=== PATIENT | female | born 1955 | race Caucasian/White ===

== ENCOUNTER 2022-10-29 15:30 | Emergency (ER) | payer MEDICARE, SELFPAY ==
[2022-10-29] VITALS (12 sets, daily range): BP systolic 141–183; BP diastolic 88–104; PULSE 85–106; RESP 16–44; TEMP 36.6; O2SAT 88–100; BMI 17.2
--- NOTE | 2022-10-29 17:54 | DI.RAD.S_ITS ---
PROCEDURE: XR CHEST 1V INDICATIONS: chest pain TECHNIQUE: One view of the chest was acquired. COMPARISON: None. FINDINGS: Surgical changes and devices: None. Lungs and pleura: Lungs are clear. No pleural effusions or pneumothorax. Mediastinum: Mediastinal contours appear normal. Heart size is normal. Bones and chest wall: No suspicious bony lesions. Overlying soft tissues appear unremarkable. IMPRESSION: No acute cardiopulmonary abnormality. Dictated by: Rosendo Ashford M.D. on 10/29/2022 at 20:49 Approved by: Rosendo Ashford M.D. on 10/29/2022 at 20:49
--- NOTE | 2022-10-29 18:04 | PC.NURSE ---
174: Pt reports increased SOB, nauseated and heeving into emesis bag. states her throat feels like its closing or i have a ball in there and c/o CP. pt taken to [facility] and IV placed and EKG obtained. Labs drawn and Dr Delatorre at bedside for assessment. BP 160/103. Pt taken to rm 5.
[2022-10-29 18:14] LABS: INR 0.9 (0.9-1.3); Prothrombin Time 10.2 SECONDS (10.1-12.7)
[2022-10-29 18:16] LABS: PTT Partial Thromboplastin Tim 30 SECONDS (26-36)
[2022-10-29 18:23] LABS: Alanine Aminotransferase 35 IU/L (<35); Albumin 5.4 g/dL (3.5-5.0); Albumin Globulin Ratio 1.5 (1.0-2.8); Alkaline Phosphatase 83 U/L (38-126); Aspartate Aminotransferase 62 IU/L (14-36); Bilirubin Total 1.2 mg/dL (0.2-1.3); Blood Urea Nitrogen 14 mg/dL (7-17); Calcium 10.3 mg/dL (8.4-10.2); Carbon Dioxide 22 mmol/L (22-32); Chloride 100 mmol/L (98-107); Creatine Kinase 88 U/L (30-135); Estimated Glomerular Filt Rate > 60 mL/min (>60); Globulin 3.5 g/dL (1.7-4.1); Glucose 91 mg/dL (80-110); Lipase 96 U/L (23-300); Magnesium 1.9 mg/dL (1.6-2.3); Potassium 4.7 mmol/L (3.4-5.1); Sodium 136 mmol/L (137-145); Total Protein 8.9 g/dL (6.3-8.2)
[2022-10-29 18:24] LABS: Add Manual Diff / Slide Review NO; Basophils Absolute Auto 0 /uL (0-100); Basophils Percent Auto 0.3 % (0-2); Eosinophils Absolute Auto 100 /uL (0-450); Eosinophils Percent Auto 1.4 % (2-4); Hematocrit 43.5 % (36-46); Hemoglobin 15.3 g/dL (12.0-16.0); Lymphocytes Absolute Auto 1900 /uL (1100-4500); Lymphocytes Percent Auto 33.8 % (25-40); Mean Corpuscular Volume 102.7 fL (80-100); Monocytes Absolute Auto 600 /uL (0-900); Monocytes Percent Auto 9.7 % (3-14); Neutrophils Absolute Auto 3100 /uL (1500-7000); Neutrophils Percent Auto 54.8 % (50-75); Platelet Count 319 X10^3/uL (150-400); Red Blood Cell Count 4.24 X10^6/uL (4.0-5.2); Red Cell Distribution Width 13.5 % (11.6-14.8); White Blood Cell Count 5.7 X10^3/uL (4.5-11.0)
[2022-10-29 18:25] LABS: HEMOLYSIS 56 (0-50)
[2022-10-29 18:35] LABS: Troponin I < 0.012 ng/mL (0.01-0.034)
--- NOTE | 2022-10-29 18:57 | ED.SKABFB ---
HPI - Skin/Abscess/Foreign Bdy General Chief complaint: Skin/Abscess/Foreign Body Stated complaint: Something in throat since 12pm, GERD, breathing Time Seen by Provider: 10/29/22 18:14 Source: patient Mode of arrival: Ambulatory Limitations: no limitations History of Present Illness HPI narrative: 67F nonsmoker with history of adenomatous polyp of the colon, allergic rhinitis, anxiety, GERD and prior esophageal stricture presents with her in the chief complaint of a fullness and pain in her throat. She states that she denies any specific event and was not eating when she noticed this discomfort and does not suspect any foreign body but states that she is having trouble swallowing and breathing and feels like there is a mass in her throat. She is been unable to eat or drink anything over the course of the day and has had subjective fever and chills. She denies chest pain or shortness of breath. She is not dizzy nor weak or lightheaded. Related Data Home Medications Medication Instructions Recorded Confirmed ascorbic acid (vitamin C) 500 mg mg PO 02/09/19 03/20/21 capsule cholecalciferol (vitamin D3) 25 1,000 unit PO DAILY 02/09/19 03/20/21 mcg (1,000 unit) capsule escitalopram oxalate 10 mg tablet 10 mg PO DAILY 02/09/19 03/20/21 magnesium oxide 400 mg PO DAILY 02/09/19 03/20/21 mecobalamin (vitamin B12) 1,000 1,000 mcg sublingual DAILY 02/09/19 03/20/21 mcg disintegrating tablet,sublingual rabeprazole 20 mg tablet,delayed 20 mg PO DAILY 02/09/19 03/20/21 release Previous Rx's Medication Instructions Recorded diazepam 2 mg tablet (Valium) 2 mg PO BID-TID PRN muscle spasm 10/29/22 #10 tabs Allergies Allergy/AdvReac Type Severity Reaction Status Date / Time risedronate sodium AdvReac Intermediate Couldnt Verified 10/29/22 15:34 [From Actonel] tolerate medication, experience extreme muscle pain. Review of Systems Review of Systems Narrative: GENERAL: Denies chills, fatigue, malaise, fever, sweats. HEENT: See HPI RESPIRATORY: Denies dyspnea, cough, wheezing, hemoptysis, sputum. CARDIOVASCULAR: Denies chest pain, palpitations, orthopnea, edema, GASTROINTESTINAL: See HPI : Denies dysuria, frequency, incontinence, hematuria, urinary retention. MUSCULOSKELETAL: denies weakness, joint pain, or bony pain SKIN: Denies rash, skin lesions, or other NEUROLOGIC: Denies weakness, headache, numbness, change in speech, confusion, seizures, incoordination. PSYCHIATRIC: No concerning psychosocial issues. 12 point review of systems is negative except for those stated above Patient History Medical History Actinic keratosis Anxiety (~2012) Chicken pox Chicken pox Endometriosis (~1979) Endometriosis GERD (gastroesophageal reflux disease) (~2007) Heavy menstrual period Hemorrhoid (~2011) History of adenomatous polyp of colon History of fever Infertility (~1979) Infertility Measles Measles Osteopenia Skin cancer (~2012) Surgical History Anesthesia Anesthesia History of colonoscopy (~01/2018) Surgical procedure planned Family History Father Heart disease Mother Diabetes mellitus Heart disease Hyperlipidemia Hypertension Social History Smoking Status: Never smoker Smoking Status: Never smoker alcohol intake frequency: holidays/special occasions only Substance Use Type: does not use Exam Narrative Exam Narrative: GENERAL: [67] year old patient appears stated age. Well-developed patient, in mild distress. HEAD: Atraumatic. Normocephalic. EYES: Pupils equal round and reactive. Extraocular motions intact. No scleral icterus. No injection or drainage. ENT: Nose without bleeding, purulent drainage. Throat without erythema, tonsillar hypertrophy or exudate. Airway patent. NECK: Trachea midline. Non tender CARDIOVASCULAR: Regular rate and rhythm without murmurs, gallops, or rubs. RESPIRATORY: Clear to auscultation. Breath sounds equal bilaterally. No wheezes, rales, or rhonchi. GASTROINTESTINAL: Abdomen soft, non-tender, nondistended. EXTREMITIES: No edema or joint tenderness. BACK: Nontender without deformity or crepitance. No flank tenderness. NEURO: AOx3. SKIN: No rash or erythema of visible areas Initial Vital Signs Initial Vital Signs: Vital Signs Temperature 97.9 F 10/29/22 15:34 Pulse Rate 106 H 10/29/22 15:34 Respiratory Rate 16 10/29/22 15:34 Blood Pressure 145/91 H 10/29/22 15:34 Pulse Oximetry 100 10/29/22 15:34 Oxygen Delivery Method 10/29/22 15:34 Course Orders Ordered: ED Orders 10/29/22 17:51 Complete Blood Count AUTO DIFF Stat Comprehensive Metabolic Panel Stat Lipase Stat Magnesium Stat Partial Thromboplastin Time Stat Prothrombin Time INR Stat Troponin & CK Cardiac Panel Stat 10/29/22 17:54 XR chest 1V Stat EKG-12 Lead Stat 10/29/22 19:04 CT soft tissue neck w con Stat Discontinued Medications Diazepam (Diazepam 2 Mg Tablet) 2 mg PO NOW ONE Stop: 10/29/22 22:16 Last Admin: 10/29/22 22:20 Dose: 2 mg Documented By: LEWIS Reevaluation(s) Reevaluation #1: patient able to drink karol luisito, no vomiting, she states it just feels weird Consultations Consultation #1: discussed with on-call surgery, after discussion of this history and physical exam as well as imaging and patient's ability to keep liquids down she recommends safe discharge as there is no obvious indication for surgical intervention, recommends referral to Dr. Devlin at [facility] given her expertise with esophageal issues. Recommends discharge with short courseOf Valium due to possible esophageal spasming Vital Signs Vital signs: Vital Signs - 8 hr 10/29/22 17:45 10/29/22 18:08 10/29/22 18:10 Pulse Rate 85 98 H 103 H Respiratory Rate 16 24 Blood Pressure 160/103 H Pulse Oximetry 99 88 L 100 Oxygen Delivery Method Room Air 10/29/22 18:10 10/29/22 18:30 10/29/22 18:30 Pulse Rate 97 H Respiratory Rate 18 Blood Pressure 158/89 H 141/88 H Pulse Oximetry 100 Oxygen Delivery Method 10/29/22 19:00 10/29/22 19:01 10/29/22 19:01 Pulse Rate 86 99 H Respiratory Rate Blood Pressure 183/104 H Pulse Oximetry 100 99 Oxygen Delivery Method 10/29/22 19:31 10/29/22 19:44 10/29/22 19:44 Pulse Rate 97 H Respiratory Rate 26 H Blood Pressure 158/91 H Pulse Oximetry 88 L 89 L Oxygen Delivery Method 10/29/22 22:25 10/29/22 20:00 10/29/22 20:00 Pulse Rate 85 96 H Respiratory Rate 16 34 H Blood Pressure 163/94 H 156/98 H Pulse Oximetry 98 98 Oxygen Delivery Method Room Air 10/29/22 20:30 10/29/22 20:30 Pulse Rate 98 H Respiratory Rate 44 H Blood Pressure 171/88 H Pulse Oximetry 100 Oxygen Delivery Method MDM - Skin/Abscess/Foreign Bdy Lab Data Result diagrams: 10/29/22 17:51 10/29/22 17:51 Labs: Lab Results 10/29/22 10/29/22 10/29/22 Range/Units 17:51 17:51 17:51 WBC 5.7 (4.5-11.0) X10^3/uL RBC 4.24 (4.0-5.2) X10^6/uL Hgb 15.3 (12.0-16.0) g/dL Hct 43.5 (36-46) % MCV 102.7 H (80-100) fL MCH 36.0 H (26-34) PG MCHC 35.0 (30-36) % RDW 13.5 (11.6-14.8) % Plt Count 319 (150-400) X10^3/uL Neut % (Auto) 54.8 (50-75) % Lymph % (Auto) 33.8 (25-40) % Kern % (Auto) 9.7 (3-14) % Eos % (Auto) 1.4 L (2-4) % Baso % (Auto) 0.3 (0-2) % Neut # (Auto) 3100 (5879-0044) /uL Lymph # (Auto) 1900 (3550-8124) /uL Kern # (Auto) 600 (0-900) /uL Eos # (Auto) 100 (0-450) /uL Baso # (Auto) 0 (0-100) /uL PT 10.2 (10.1-12.7) SECONDS INR 0.9 (0.9-1.3) APTT 30 (26-36) SECONDS Sodium 136 L (137-145) mmol/L Potassium 4.7 (3.4-5.1) mmol/L Chloride 100 (98-107) mmol/L Carbon Dioxide 22 (22-32) mmol/L BUN 14 (7-17) mg/dL Creatinine 0.56 (0.52-1.04) mg/dL Estimated GFR > 60 (>60) mL/min BUN/Creatinine Ratio 25.0 H (6-22) Glucose 91 (80-110) mg/dL Calcium 10.3 H (8.4-10.2) mg/dL Magnesium 1.9 (1.6-2.3) mg/dL Total Bilirubin 1.2 (0.2-1.3) mg/dL AST 62 H (14-36) IU/L ALT 35 H (<35) IU/L Alkaline Phosphatase 83 (38-126) U/L Total Creatine Kinase 88 (30-135) U/L CK-MB (CK-2) TNP CK-MB (CK-2) Rel Index TNP Troponin I < 0.012 (0.01-0.034) ng/mL Total Protein 8.9 H (6.3-8.2) g/dL Albumin 5.4 H (3.5-5.0) g/dL Globulin 3.5 (1.7-4.1) g/dL Albumin/Globulin Ratio 1.5 (1.0-2.8) Lipase 96 (23-300) U/L MDM Narrative Medical decision making narrative: CC: fullness in her throat for the past few days Complicating co-morbidities: prior esophageal strictures, GERD, anxiety, age Data collected from: patient and Medical records reviewed: including prior PCP visits Differential considered, but not limited to: esophageal foreign body, mass, abscess vs. other Exam documented above, pertinent findings include: no significant abnormal physical exam findings, no visible mass or obstructive process and posterior pharynx, airway patent, patient controlling secretions. Normal lung sounds without evidence of re Lab Test results independently reviewed as above. Pertinent findings: no significant sign of infection such as leukocytosis or left shift, electrolytes and renal function unremarkable, slight bump in LFTs Imaging studies independently reviewed: CT soft tissue of neck with IV contrast demonstrates no abscess, mass or Treatments: patient feels improvement after Valium Re-evaluations: no evidence of respiratory distress, patient managing secretions, no vomiting, patient tolerating orals Discussion: patient with a sensation of fullness in her throat, no vomiting, no respiratory distress, feels abnormal when she swallows but able to keep liquids down. Imaging is reassuring. Discussed with surgery, no need for intervention, recommend prescription for Valium for muscle relaxation, referral to Dr. Devlin at [facility] Disposition: see below, along with detailed discharge instructions that have been reviewed with patient as well as indications for ED re-evaluation and additional outpatient follow up Discharge Plan Departure Patient Disposition: Home Clinical Impression: Esophageal abnormality Instructions: Esophageal Stricture Activity Restrictions/Additional Instructions: *You have been diagnosed with [esophageal abnormality. As we discussed your history and physical exam as well as lab work are very reassuring. The CT scan does not demonstrate any blockage or infection] *What to do: *Please continue to take your regular medications as directed. [x ] New medication prescriptions sent to your pharmacy: [ [facility]] [ ] New medication written as a paper prescription [ ] No new medications given *Please follow up with Dr. Devlin from [facility] call for an appointment. Let them know you were seen in the Emergency Department and that we ask that you be seen in follow up. We will electronically transmit a record of today's note if your PCP is in our system *Return to Emergency Department if you should have any new, worsening or concerning symptoms, such as [fever greater than 101 F, shaking chills, worsening pain, persistent vomiting or other bothersome symptoms] Prescriptions: New diazepam [Valium] 2 mg tablet 2 mg PO BID-TID PRN (Reason: muscle spasm) Qty: 10 0RF No Action rabeprazole 20 mg tablet,delayed release (DR/EC) 20 mg PO DAILY cholecalciferol (vitamin D3) 1,000 unit capsule 1,000 unit PO DAILY escitalopram oxalate 10 mg tablet 10 mg PO DAILY magnesium oxide 400 mg capsule 400 mg PO DAILY mecobalamin (vitamin B12) 1,000 mcg tablet,disintegrating 1,000 mcg SL DAILY ascorbic acid (vitamin C) 500 mg capsule PO Referrals: Akash Escobar MD [Primary Care Provider] - Allie Devlin MD [Non-Staff] - Stand Alone Forms: Patient Portal/API
--- NOTE | 2022-10-29 19:04 | DI.CT.S_ITS ---
PROCEDURE: CT SOFT TISSUE NECK W CON INDICATIONS: throat pain, feels mass, cannot swallow, fever TECHNIQUE: After the administration of intravenous contrast, 3.0 mm axial sections acquired from the sella to the aortic arch. Additional oblique axial 3.0 mm sections acquired through the pharynx. 3 mm thick coronal and sagittal reformats were generated. For radiation dose reduction, the following was used: automated exposure control. COMPARISON: None. FINDINGS: Image quality: Good. Dental hardware beam hardening. Lymph nodes: Prominent right submandibular node measuring 0.8 cm short axis diameter, (2/42). Vessels: Visualized vasculature appears patent. Neck spaces: The oropharynx, nasopharynx, and pharynx demonstrate no mucosal lesions. The vocal cords, false vocal cords, pyriform sinuses, epiglottis, vallecula, and tongue base all appear normal. Extramucosal spaces appear unremarkable. The esophagus is patulous and has fluid in the inferior aspect. Glands: The parotid and submandibular glands appear normal. Thyroid gland is unremarkable. Miscellaneous: Trace mucosal thickening in the right maxillary sinus. Visualized brain and orbits appear normal. Lung apices appear clear. Superficial soft tissues appear normal. Bones: No suspicious bony lesions. [id number] degenerative changes in the cervical spine. Visualized sinuses and mastoids appear unremarkable. IMPRESSION: No fluid collection or abscess demonstrated. Prominent right submandibular lymph node. The esophagus is patulous with air-fluid level at the mid/inferior aspect. This could result in a globus sensation. Consider esophagram endoscopy or CT for further evaluation of the distal esophagus. Dictated by: Rosendo Ashford M.D. on 10/29/2022 at 21:04 Approved by: Rosendo Ashford M.D. on 10/29/2022 at 21:14
[2022-10-29] MEDS: diazePAM 2 MG TABLET PO (22:20)
--- NOTE | 2022-10-29 22:41 | PC.NURSE ---
pt was eating salad around 1100 when she felt like it got stuck in her throat. she states this has happened before but most of the time it goes away fairly quickly. pt states it is not going away this time. pt states she feels like it is hard to breath in through her mouth. she states that she can feel the saliva building up and then she has to spit it out and it did have small pieces of lettuce in it. pt states she has had stricture in past, approx. 10-12 years ago. but her GI doc retired and she does not have a new one.
== END 2022-10-29 22:35 | disposition home or self-care (01) ==
PROVIDERS: Emergency Medicine; Emergency Provider Emergency Medicine; PCP Internal Medicine
DX: K22.9 Disease of esophagus, unspecified (principal); R07.9 Chest pain, unspecified; R07.0 Pain in throat
CPT/HCPCS: 36415; 70491; 71045; 80053; 82550; 83690; 83735; 84484; 85025; 85610; 85730; 93005; 93010; 99283; 99284; Q9967

== ENCOUNTER → 2023-04-30 10:53 | Outpatient (CLI) | payer MEDICARE, SELFPAY ==
[2023-04-30 13:03] LABS: HEMOLYSIS < 15 (0-50); Iron 140 ug/dL (37-170)
[2023-04-30 13:08] LABS: Alanine Aminotransferase 38 IU/L (<35); Albumin 4.5 g/dL (3.5-5.0); Albumin Globulin Ratio 1.8 (1.0-2.8); Alkaline Phosphatase 71 U/L (38-126); Aspartate Aminotransferase 74 IU/L (14-36); BUN Creatinine Ratio 19.4 (6-22); Bilirubin Total 0.8 mg/dL (0.2-1.3); Bilirubin Unconjugated 0.5 mg/dL (0.0-1.1); Blood Urea Nitrogen 14 mg/dL (7-17); Calcium 9.2 mg/dL (8.4-10.2); Carbon Dioxide 27 mmol/L (22-32); Chloride 101 mmol/L (98-107); Cholesterol 256 mg/dL (140-199); Creatine Kinase 52 U/L (30-135); Estimated Glomerular Filt Rate > 60 mL/min (>60); Globulin 2.5 g/dL (1.7-4.1); Glucose 86 mg/dL (80-110); HEMOLYSIS < 15 (0-50); Potassium 3.9 mmol/L (3.4-5.1); Sodium 136 mmol/L (137-145); Triglycerides 103 mg/dL (35-150)
[2023-04-30 13:14] LABS: Percent Iron Saturation 41 % (15-50); Total Iron Binding Capacity 339 ug/dL (265-497); Transferrin 299 mg/dL (206-381)
[2023-04-30 13:15] LABS: HDL Cholesterol 163 mg/dL (40-60); LDL Cholesterol Calculated 72 mg/dL (<100)
[2023-04-30 13:33] LABS: TSH w/ Reflex to FT4 1.28 uIU/mL (0.47-4.68)
[2023-05-01 07:19] LABS: Ceruloplasmin 24.6 mg/dL (19.0-39.0)
[2023-05-01 16:38] LABS: Hep C Virus Ab w/Reflex Quant NEGATIVE s/c (NEGATIVE); Hepatitis B Surface Antigen NEGATIVE s/c (NEGATIVE)
[2023-05-02 04:30] LABS: Hepatitis B Surf Ab Qualitativ Non Reactive (.)
[2023-05-02 10:09] LABS: Smooth Muscle Antibody 4 Units (0-19)
[2023-05-03 15:36] LABS: ANA Screen, IFA Negative (.)
== END ==
PROVIDERS: PCP Internal Medicine; Referring Provider Internal Medicine; Visit Provider Internal Medicine
DX: E03.9 Hypothyroidism, unspecified (principal); K22.2 Esophageal obstruction; K21.9 Gastro-esophageal reflux disease without esophagitis; K73.9 Chronic hepatitis, unspecified
CPT/HCPCS: 36415; 80048; 80061; 80076; 82390; 82550; 83516; 83540; 83550; 84443; 86038; 86706; 86803; 87340

== ENCOUNTER → 2023-05-13 10:50 | Outpatient (CLI) | payer MEDICARE, SELFPAY ==
--- NOTE | 2023-05-13 | DI.MG.S_ITS ---
BILATERAL DIGITAL SCREENING MAMMOGRAM 3D/2D WITH CAD WITH AUGMENTATION: 05/13/2023 CLINICAL: Baseline by default. Family history of breast cancer. No prior exams were available for comparison. Both breasts are heterogeneously dense, which may obscure small masses (category c / 51-75% glandular tissue). Current study was also evaluated with a Computer Aided Detection (CAD) system. Bilateral breast implants are intact. No significant masses, calcifications, or other findings are seen in either breast. IMPRESSION: NEGATIVE There is no mammographic evidence of malignancy. A 1 year screening mammogram is recommended. Based on the Tyrer Cuzick model (a risk assessment model) the patient's lifetime risk is 9.7% and her 10 year risk is 5.8%. According to the ACR, ACS, and NCCN guidelines, an annual breast MRI exam along with mammogram is recommended if the patient's lifetime risk is 20% or greater. This exam was interpreted at Station ID: [id number]. NOTE: For mammograms, a report in lay terms will be sent to the patient. Approximately 15% of breast malignancies will not be visualized mammographically. In the management of a palpable breast mass, a negative mammogram must not discourage biopsy of a clinically suspicious lesion. Electronically Signed By: Rosendo rodríguez/mireya:05/13/2023 16:52:07 letter sent: Normal Exam ACR BI-RADS Category 1: Negative 3341F
--- NOTE | 2023-05-13 11:04 | DI.DEXA.S_ITS ---
Bone Density Report Name: JACQUELIN CHICAS Age: 67 Sex: Female Ethnicity: White Date of : 1955 Indication: postmenopausal; screening for osteoporosis; Referring Provider: BERHANE MARI Study: Bone densitometry was performed. Exam Date: May 13, 2023 Accession number: [id number] Bone Density: Region BMD T-score Z-score Classification AP Spine(L1-L4) 0.781 -2.4 -0.3 Osteopenia Femoral Neck (Left) 0.589 -2.3 -0.6 Osteopenia Total Hip (Left) 0.725 -1.8 -0.3 Osteopenia Femoral Neck (Right) 0.605 -2.2 -0.4 Osteopenia Total Hip (Right) 0.750 -1.6 -0.1 Osteopenia Total Hip Mean 0.737 -1.7 -0.2 Osteopenia World Health Organization criteria for BMD impression classify patients as: Normal (T-score at or above -1.0), Osteopenia (T-score between -1.0 and -2.5), or Osteoporosis (T-score at or below -2.5). 10-year Fracture Risk(1): Major Osteoporotic Fracture 11% Hip Fracture 2.5% Reported Risk Factors: [place] (), Neck BMD=0.589, BMI=18.0 (1) FRAX(R) Version 3.08. Fracture probability calculated for an untreated patient. Fracture probability may be lower if the patient has received treatment. Impression: The patient has low bone mass, based on the Total Spine T-score. The patient has an estimated ten-year risk of hip fracture of 2.5% and an estimated ten-year risk of major fracture of 11%, based on the WHO FRAX algorithm. Discussion: BONE DENSITY IS LOW AT ONE OR MORE SKELETAL SITES. This patient's lowest T-score is low at one or more skeletal sites. It meets the World Health Organization's (WHO) criteria for ?low bone mass? (T-score between -1.0 and -2.5). The patient's 10-year risk of fracture as calculated by FRAX is less than the threshold where pharmacological therapy is recommended by the National Osteoporosis Foundation (NOF). However, all treatment decisions require clinical judgment and consideration of individual patient factors, including patient preferences, comorbidities, previous drug use, risk factors notA captured in the FRAX model (e.g., frailty, falls, vitamin D deficiency, increased bone turnover, interval significant decline in bone density) and possible under or overestimation of fracture risk by FRAX. The patient should follow a healthful lifestyle (good nutrition with adequate calcium and vitamin D, and appropriate weight-bearing exercise). Follow-Up: Consider repeating this study in 2 to 3 years to reassess this patient's status, or sooner if there is some new clinical indication. Reported by: AGUSTIN LINARES M.D. on 05/13/2023 11:13:00 AM.
== END ==
PROVIDERS: PCP Internal Medicine; Referring Provider Internal Medicine; Visit Provider Internal Medicine
DX: Z12.31 Encounter for screening mammogram for malignant neoplasm of breast; M85.88 Other specified disorders of bone density and structure, other site; Z80.3 Family history of malignant neoplasm of breast; Z13.820 Encounter for screening for osteoporosis; Z78.0 Asymptomatic menopausal state
CPT/HCPCS: 77063; 77067; 77080

== ENCOUNTER → 2023-12-30 13:12 | Outpatient (ROUT) | payer MEDICARE, SELFPAY | PROVIDERS: PCP Internal Medicine; Visit Provider Dermatology | DX: L24.4 Irritant contact dermatitis due to drugs in contact with skin (principal); T49.8X5A Adverse effect of other topical agents, initial encounter; C44.629 Squamous cell carcinoma of skin of left upper limb, including shoulder; C44.622 Squamous cell carcinoma of skin of right upper limb, including shoulder; L57.0 Actinic keratosis; X32.XXXA Exposure to sunlight, initial encounter; L57.8 Other skin changes due to chronic exposure to nonionizing radiation; L81.4 Other melanin hyperpigmentation | CPT/HCPCS: 87070; 87205 ==

== ENCOUNTER → 2024-05-26 12:51 | Outpatient (CLI) | payer MEDICARE, SELFPAY ==
--- NOTE | 2024-05-26 | DI.MG.S_ITS ---
BILATERAL DIGITAL SCREENING MAMMOGRAM 3D/2D WITH CAD WITH AUGMENTATION: 05/26/2024 CLINICAL: Routine screening. Family history of breast cancer. Comparison is made to exam dated: 05/13/2023 mammogram - [facility]. Both breasts are heterogeneously dense, which may obscure small masses (category c / 51-75% glandular tissue). Current study was also evaluated with a Computer Aided Detection (CAD) system. Bilateral breast implants are intact. No significant masses, calcifications, or other findings are seen in either breast. There has been no significant interval change. IMPRESSION: NEGATIVE There is no mammographic evidence of malignancy. A 1 year screening mammogram is recommended. Based on the Tyrer Cuzick model (a risk assessment model) the patient's lifetime risk is 9.2% and her 10 year risk is 5.8%. According to the ACR, ACS, and NCCN guidelines, an annual breast MRI exam along with mammogram is recommended if the patient's lifetime risk is 20% or greater. This exam was interpreted at Station ID: [id number]. NOTE: For mammograms, a report in lay terms will be sent to the patient. Approximately 15% of breast malignancies will not be visualized mammographically. In the management of a palpable breast mass, a negative mammogram must not discourage biopsy of a clinically suspicious lesion. Electronically Signed By: Matthew flores/mireya:05/26/2024 13:49:51 letter sent: Normal Exam ACR BI-RADS Category 1: Negative 3341F
== END ==
PROVIDERS: PCP Internal Medicine; Referring Provider Internal Medicine; Visit Provider Internal Medicine
DX: Z12.31 Encounter for screening mammogram for malignant neoplasm of breast (principal); Z80.3 Family history of malignant neoplasm of breast; R92.333 Mammographic heterogeneous density, bilateral breasts
CPT/HCPCS: 77063; 77067